=== PATIENT | female | born 1955 | race Caucasian/White ===

== ENCOUNTER 2017-04-22 14:17 | Observation (INO) ==
[2017-04-22] MEDS ORDERED: ONDANSETRON 4 MG/2 ML VIAL IV PRN (14:28)
[2017-04-22] MEDS: SODIUM CHLORIDE 0.9% 1,000 ML IV SCH (16:28)
[2017-04-22] MEDS ORDERED: LABETALOL 20 MG/4 ML SYRINGE IV PRN (17:03)
--- NOTE | 2017-04-22 17:03 | Hospitalist History & Physical ---
Assessment and Plan (1) Acute right-sided weakness Status: Acute Assessment and plan: Neurological workup was performed at [facility] prior to transfer. CT scan was essentially negative; labs were essentially benign. Although the patient reported profound right-sided weakness, her deficits are noted gross. She is able to move the right side extremities however there is a degree of weakness noted. We will order a stat MRI of the brain; echocardiogram, carotid Dopplers , lipid panel, and thyroid panel. We will consult neurology to evaluate. Current Visit: Yes (2) Hypertension Status: Acute Assessment and plan: We will monitor manage during the clinical encounter. Current Visit: Yes History of Present Illness Chief complaint: Right-sided weakness right-sided weakness History of present illness: This is a 61-year-old female that presented to [facility] as a direct admission from [facility] in [place], [place] for the evaluation of right-sided weakness. The patient has a medical history significant for hypertension, cerebrovascular accident, insulin-dependent diabetes mellitus, fibromyalgia and history of transfusion from a blood transfusion. Patient has a surgical history significant for cardiac catheterization and coronary artery bypass graft in 2016. The patient reported an onset of symptoms about 3 hours prior to presentation at [facility]. Patient reported that the initial symptoms started as a headache and gradually progressed to some right-sided weakness. She reported that the pain from the headache affected the right side of her head and face. The weakness was more profound her lower extremities versus other upper extremities. Pertinent positives include visual changes, lower extremity weakness; pertinent negative include nausea, vomiting, syncope, and dizziness. Patient reports episodes similar in nature in the past. Neurological workup was performed at [facility]. I have reviewed the transfer paperwork. Her labs were essentially unremarkable. CT scan was performed was essentially negative for any acute intracranial process. I was contacted by Dr. Valle at [facility]. We discussed her case in great detail. The patient was subsequently transferred to [facility] for further neurological workup. Home Medications Medication Instructions Recorded Confirmed Type Aspirin Chew Tab 81 mg PO DAILY 04/22/17 04/22/17 History Benztropine Tab [Cogentin Tab] 0.5 mg PO DAILY 04/22/17 04/22/17 History Diclofenac Sodium Tab [Voltaren] 50 mg PO BID 04/22/17 04/22/17 History Insulin Aspart [NovoLOG FlexPen] 20 units SUBCUT AC SUPPER 04/22/17 04/22/17 History Insulin Glargine [Lantus] 70 units SUBCUT BEDTIME 04/22/17 04/22/17 History Losartan Potassium 100 mg PO DAILY 04/22/17 04/22/17 History Metoprolol Succinate Xl [Toprol Xl] 100 mg PO DAILY 04/22/17 04/22/17 History Multivit,Calc,Mins/Iron/Folic 1 tablet PO DAILY 04/22/17 04/22/17 History [Women's Daily Formula Caplet] Potassium 99 mg PO DAILY 04/22/17 04/22/17 History Allergies Allergy/AdvReac Type Severity Reaction Status Date / Time codeine Allergy Severe Unknown/Unable Verified 04/22/17 16:23 to obtain hydroxyzine Allergy Severe Unknown/Unable Verified 04/22/17 16:23 to obtain Penicillins Allergy Severe Unknown/Unable Verified 04/22/17 16:23 to obtain acetaminophen [From Tavist] Allergy Unknown Unknown/Unable Verified 04/22/17 16: 23 to obtain atropine [From ] Allergy Unknown Unknown/Unable Verified 04/22/17 16:23 to obtain clemastine [From Tavist] Allergy Unknown Unknown/Unable Verified 04/22/17 16:23 to obtain dipyridamole Allergy Unknown Unknown/Unable Verified 04/22/17 16:23 [From Persantine] to obtain Hyoscyamine [From ] Allergy Unknown Unknown/Unable Verified 04/22/17 16: 23 to obtain metformin Allergy Unknown Unknown/Unable Verified 04/22/17 16:24 to obtain phenobarbital [From ] Allergy Unknown Unknown/Unable Verified 04/22/17 16:23 to obtain phenylbutazone Allergy Unknown Unknown/Unable Verified 04/22/17 16:23 [From Butazolidin] to obtain pseudoephedrine [From Tavist] Allergy Unknown Unknown/Unable Verified 04/22/17 16:23 to obtain scopolamine [From ] Allergy Unknown Unknown/Unable Verified 04/22/17 16: 23 to obtain Sulfa (Sulfonamide Allergy Unknown Unknown/Unable Verified 04/22/17 16:23 Antibiotics) to obtain sulfamethoxazole Allergy Unknown Unknown/Unable Verified 04/22/17 16:23 [From Bactrim] to obtain trimethoprim [From Bactrim] Allergy Unknown Unknown/Unable Verified 06/06/17 16: 23 to obtain Medical,Surgical,& Family Hx - Medical History Cardio: History of: CAD, Hypertension Neurology: History of: Cerebrovascular Accident Endocrine: History of: Diabetes Mellitus (IDDM) Rheumatology: History of;: Fibromyalgia Hematology: History of: Blood Transfusion Reaction - Surgical History Cardiac Surgeries: Sugical HX of: Cardiac Catheterization, Cardiac Surgery (2016 ) - Family History Family History: Reports;: Family Diabetes, Family Heart Disease, Family Hypertension - Social History Smoking Status: Never smoker Frequency of Alcohol Use: None Type of Drug Use: None 12 point system: reviewed and no additional remarkable complaints except as stated Exam - Constitutional Vitals: Period Temp Pulse Resp BP Sys/Melvin Pulse Ox Last 24 Hr 97.7 F 91 20 141/82 97 General appearance: normal weight, no acute distress - Head Head exam: Present: normal inspection, normocephalic - Eye Eye exam: Present: EOMI, conjunctival injection Pupils: Present: MIRIAM, normal accommodation - ENT ENT exam: Present: normal exam, normal external ear exam, normal oropharynx - Neck Neck exam: Present: normal inspection. Absent: lymphadenopathy, meningismus, thyromegaly - Respiratory Respiratory exam: Present: clear to auscultation bilaterally. Absent: rales, rhonchi, stridor, wheezes - Cardiovascular Cardiovascular exam: Present: regular rate and rhythm. Absent: carotid bruit, diastolic murmur, gallop, JVD, rubs, systolic murmur - GI/Abdominal GI/Abdominal exam: Present: normal bowel sounds, soft - Extremities Exam Extremities exam: Present: normal inspection, normal capillary refill, full ROM. Absent: edema - Back Exam Back exam: Present: normal inspection - Neurological Exam Neurological exam: Present: alert, other (Motor strength 4/5 on left arm; 3/5 on right arm; 4/5 on left leg; 3/5 on right knee) - Psychiatric Psychiatric exam: Present: flat affect - Skin Skin exam: Present: normal color, warm, dry Quality Measures - VTE Contraindication to Pharmacological VTE Prophylaxis: Clinical assessment deems Pt at low risk, no prophalaxis needed - Stroke Onset of Symptoms Date: 04/22/17 Symptom Onset Unknown: No
[2017-04-22] MEDS ORDERED: DEXTROSE 50% 25 GM/50 ML VIAL IV PRN (17:26)
[2017-04-22] MEDS ORDERED: GLUCAGON 1 MG VIAL IM PRN (17:26)
[2017-04-22 18:15] LABS: Cholesterol 272 MG/DL (50-200); HDL Cholesterol 70 MG/DL (40-60); Risk Ratio 3.89; Triglycerides 180 MG/DL (2-150); Troponin I Only < 0.015 NG/ML (0.00-0.045)
--- NOTE | 2017-04-22 18:59 | Magnetic Resonance Report ---
MRI of the brain without intravenous contrast. Indication: Right-sided weakness and paralysis. No prior studies. No previous CT. Sagittal T1, axial diffusion, axial T2, axial FLAIR, axial T1, axial gradient echo, coronal T2, axial ADC. The appearance of the craniovertebral junction is within normal limits. There is a partial empty sella present. There is suspected enlargement of the sella turcica. The posterior aspect of the sphenoid sinus is not adequately differentiated from the anterior aspect of the pituitary fossa. The pituitary fossa may measure as much as 2.1 cm in the AP dimension. There is generalized prominence of the ventricles and sulci consistent with atrophy of aging. No cortical infarcts are seen. No acute ischemic lesions are noted. Minimal if any abnormal signal is seen within the white matter. Within the anterior aspect of the left thalamus, there is a curvilinear low signal intensity on T1 and gradient echo images, and mixed low and increased signal intensity on T2 sequences. This is low signal intensity on T1 centrally. The venous sinuses are patent. Impression: 1. No evidence of acute ischemic infarct. 2. Small, 8 mm focus of signal abnormality in the anterior aspects of the left thalamus. This could represent a small area of previous hemorrhage with encephalomalacia and hemosiderin, or a vascular malformation such as a cavernous angioma. A focus of rim calcification may also be present. CT may be helpful in making a further determination. 3. There is a partial empty sella. There is lobular fluid signal intensity seen anteriorly at the sella turcica. This could be a part of the enlarged sella turcica, or pathology present within the sphenoid sinus. CT of the sinuses is recommended for further evaluation PROCEDURE INTERPRETED AT [facility] DEPARTMENT OF RADIOLOGY Final Report Signed by: Dr. Kasey Higgins
--- NOTE | 2017-04-22 20:57 | Ultrasound Report ---
Bilateral carotid Doppler. Indication: Right-sided weakness. Grayscale, color-flow, and spectral analysis was performed and interpreted. There is mixed plaque present at each carotid bulb. The right internal carotid artery peak systolic velocity is 94 cm/s, with an IC/CC ratio 1.1. The left internal carotid artery peak systolic velocity is 99 cm/s, with an IC/CC ratio of 1.2. There is antegrade flow within each vertebral artery. Impression: Using NASCET criteria, findings consistent with less than 50% stenosis bilaterally. PROCEDURE INTERPRETED AT [facility] DEPARTMENT OF RADIOLOGY Final Report Signed by: Dr. Kasey Higgins
[2017-04-22] MEDS: DICLOFENAC SODIUM 50 MG TABLET PO SCH (21:16)
[2017-04-22] MEDS: ACETAMINOPHEN 325 MG TABLET PO PRN (21:18)
[2017-04-22] MEDS: INSULIN REGULAR 100 UNIT/ML SUBCUT SCH (21:21)
[2017-04-23] MEDS: SODIUM CHLORIDE 0.9% 1,000 ML IV SCH ×2 (05:07→21:37)
[2017-04-23 06:58] LABS: Basophils % 0.4 % (0.0-0.8); Eosinophils # 0.2 10*3/uL (0.0-0.87); Eosinophils % 3.6 % (0.00-10.9); Hematocrit 40.2 VOL% (35.7-47.0); Hemoglobin 13.7 GM/DL (12.0-16.0); Immature Granulocytes Absolute 0.05 #; Lymphocytes # 1.8 10*3/uL (1.4-4.0); Mean Corpuscular HGB Conc 34.1 GM/DL (32-36); Mean Corpuscular Hemoglobin 27 PG (27-34); Mean Corpuscular Volume 78.8 FL (87-102); Mean Platelet Volume 11.1 FL (9.6-12.0); Monocytes # 0.5 10*3/uL (0.11-0.8); Monocytes % 9.7 % (1.7-12.7); Neutrophils # 2.5 10*3/uL (1.4-7.4); Neutrophils % 50.3 % (38.7-73.9); Platelet Count 135 T/CUMM (130-400); Red Cell Distribution Width 13.5 % (9.3-17.3)
[2017-04-23 07:41] LABS: Albumin 3.2 G/DL (3.4-5.0); Bilirubin,Total 0.4 MG/DL (0.2-1.0); Calcium 8.6 MG/DL (8.5-10.1); Free T4 (Free Thyroxine) 0.94 NG/DL (0.76-1.46); Osmolality,Calculated 288.8 MOS/KG (273-304); Potassium 5.1 MMOL/L (3.5-5.1); Risk Ratio 4.64; Thyroid Stimulating Hormone 1.84 uIU/ml (0.358-3.74); VLDL CHOLESTEROL 46.6 MG/DL
[2017-04-23] MEDS: INSULIN REGULAR 100 UNIT/ML SUBCUT SCH ×4 (09:55→21:38)
[2017-04-23] MEDS: LOSARTAN 50 MG TABLET PO SCH ×2 (09:56→14:10)
[2017-04-23] MEDS: PANTOPRAZOLE 40 MG TABLET PO SCH (09:56)
[2017-04-23] MEDS: POTASSIUM GLUCONATE 500 MG TABLET PO SCH ×2 (09:56→10:13)
[2017-04-23] MEDS: ASPIRIN CHEW 81 MG TABLET PO SCH (09:57)
[2017-04-23] MEDS: MULTIVITAMIN (CENTRUM) TABLET PO SCH (09:57)
[2017-04-23] MEDS: METOPROLOL SUCCINATE XL 100 MG TABLET PO SCH (09:57)
[2017-04-23] MEDS: DICLOFENAC SODIUM 50 MG TABLET PO SCH ×2 (09:57→21:38)
[2017-04-23] MEDS: BENZTROPINE 0.5 MG TABLET PO SCH (09:57)
--- NOTE | 2017-04-23 14:25 | Hospitalist Progress Note ---
Assessment and Plan (1) CVA, old, hemiparesis Status: Acute Assessment and plan: MRI shows nothing acute, cont reanna, dr. Lora evaluation pending. Exacerbating weakness for secondary gain Current Visit: Yes (2) Hypertension Status: Acute Assessment and plan: controlled Current Visit: Yes (3) CAD (coronary artery disease) Status: Acute Assessment and plan: s/p cabg in [place] 2010 Current Visit: Yes (4) Depression Status: Acute Assessment and plan: zoloft 25 mg po every day Current Visit: Yes Hospitalist: Subjective Interval history: Patient does not seem to very focused when answering questions. She will barely move her mouth which is not a symptom of stroke I also noted when I was testing her strength on the right side where she supposedly had weakness she had hesitation. Patient does have a history of strokes from the past. Mary is her niece [phone] is her contact number. We will await physical therapy and OT therapy notes and make a referral to [facility] Exam - Constitutional Vitals: Period Temp Pulse Resp BP Sys/Melvin Pulse Ox Last 24 Hr 96.6 F-97.8 F 82-91 18-20 108-141/70-85 91-98 Exam: Heart Rate-[RRR] Lungs-[CTAB] GI-[+bs soft, NT] Ext-[no edema] Neuro [Motor 4/5 o right], [alert and oriented times 3] psych [normal mood and affect] General [no acute distress] Results - Labs CBC & BMP: 04/23/17 06:06 04/23/17 06:06 Lab Results: I have reviewed the past 24 hour labs - Diagnostic Findings Procedure: MRI: report reviewed by me (MRI of the brain shows no acute ischemic infarcts but has an 8 mm left thalamic previous infarct), Ultrasound: report reviewed by me (Carotid ultrasound less than 50% stenosis) Quality Measures - VTE Contraindication to Pharmacological VTE Prophylaxis: Clinical assessment deems Pt at low risk, no prophalaxis needed - Stroke Onset of Symptoms Date: 04/22/17 Symptom Onset Unknown: No
--- NOTE | 2017-04-23 14:57 | Hospitalist Progress Note ---
Assessment and Plan (1) CVA, old, hemiparesis Status: Acute Assessment and plan: MRI shows nothing acute, cont reanna, dr. Lora evaluation pending. Exacerbating weakness for secondary gain Current Visit: Yes (2) Hypertension Status: Acute Assessment and plan: controlled Current Visit: Yes (3) CAD (coronary artery disease) Status: Acute Assessment and plan: s/p cabg in [place] 2010 Current Visit: Yes (4) Depression Status: Acute Assessment and plan: zoloft 25 mg po every day Current Visit: Yes Exam - Constitutional Vitals: Period Temp Pulse Resp BP Sys/Melvin Pulse Ox Last 24 Hr 96.6 F-97.8 F 82-91 18-20 108-141/70-85 91-98 Results - Labs CBC & BMP: 04/23/17 06:06 04/23/17 06:06 Lab Results: I have reviewed the past 24 hour labs Quality Measures - VTE Contraindication to Pharmacological VTE Prophylaxis: Clinical assessment deems Pt at low risk, no prophalaxis needed - Stroke Onset of Symptoms Date: 04/22/17 Symptom Onset Unknown: No
[2017-04-23] MEDS: SERTRALINE 25 MG TABLET PO SCH (15:28)
[2017-04-23] MEDS: ACETAMINOPHEN 325 MG TABLET PO PRN ×2 (15:28→23:16)
--- NOTE | 2017-04-23 15:29 | Neurology Consult Note ---
History of Present Illness History of present illness: This is a 61-year-old RH WF that presented to [facility] as a direct admission from [facility] in [place], [place] for the evaluation of right-sided weakness. The patient has a medical history significant for hypertension, cerebrovascular accident, insulin-dependent diabetes mellitus, fibromyalgia and history of transfusion from a blood transfusion. Patient has a surgical history significant for cardiac catheterization and coronary artery bypass graft in 2016. The patient reported an onset of symptoms about 3 hours prior to presentation at [place]. Patient reported that the initial symptoms started as a headache and gradually progressed to some right-sided weakness. She reported that the pain from the headache affected the right side of her head and face. The weakness was more profound her lower extremities versus other upper extremities. CT scan was performed was essentially negative for any acute intracranial process. MRI of the brain reveals no acute abnormalities but it did show some old strokes and small vessel disease Home Medications Medication Instructions Recorded Confirmed Type Aspirin Chew Tab 81 mg PO DAILY 04/22/17 04/22/17 History Benztropine Tab [Cogentin Tab] 0.5 mg PO DAILY 04/22/17 04/22/17 History Diclofenac Sodium Tab [Voltaren] 50 mg PO BID 04/22/17 04/22/17 History Insulin Aspart [NovoLOG FlexPen] 20 units SUBCUT AC SUPPER 04/22/17 04/22/17 History Insulin Glargine [Lantus] 70 units SUBCUT BEDTIME 04/22/17 04/22/17 History Losartan Potassium 100 mg PO DAILY 04/22/17 04/22/17 History Metoprolol Succinate Xl [Toprol Xl] 100 mg PO DAILY 04/22/17 04/22/17 History Multivit,Calc,Mins/Iron/Folic 1 tablet PO DAILY 04/22/17 04/22/17 History [Women's Daily Formula Caplet] Potassium 99 mg PO DAILY 04/22/17 04/22/17 History Allergies Allergy/AdvReac Type Severity Reaction Status Date / Time codeine Allergy Severe Unknown/Unable Verified 04/22/17 16:23 to obtain hydroxyzine Allergy Severe Unknown/Unable Verified 04/22/17 16:23 to obtain Penicillins Allergy Severe Unknown/Unable Verified 04/22/17 16:23 to obtain acetaminophen [From Tavist] Allergy Unknown Unknown/Unable Verified 04/22/17 16: 23 to obtain atropine [From ] Allergy Unknown Unknown/Unable Verified 04/22/17 16:23 to obtain clemastine [From Tavist] Allergy Unknown Unknown/Unable Verified 04/22/17 16:23 to obtain dipyridamole Allergy Unknown Unknown/Unable Verified 04/22/17 16:23 [From Persantine] to obtain Hyoscyamine [From ] Allergy Unknown Unknown/Unable Verified 04/22/17 16: 23 to obtain metformin Allergy Unknown Unknown/Unable Verified 04/22/17 16:24 to obtain phenobarbital [From ] Allergy Unknown Unknown/Unable Verified 04/22/17 16:23 to obtain phenylbutazone Allergy Unknown Unknown/Unable Verified 04/22/17 16:23 [From Butazolidin] to obtain pseudoephedrine [From Tavist] Allergy Unknown Unknown/Unable Verified 04/22/17 16:23 to obtain scopolamine [From ] Allergy Unknown Unknown/Unable Verified 04/22/17 16: 23 to obtain Sulfa (Sulfonamide Allergy Unknown Unknown/Unable Verified 04/22/17 16:23 Antibiotics) to obtain sulfamethoxazole Allergy Unknown Unknown/Unable Verified 04/22/17 16:23 [From Bactrim] to obtain trimethoprim [From Bactrim] Allergy Unknown Unknown/Unable Verified 04/22/17 16: 23 to obtain 12 point system: reviewed and no additional remarkable complaints except as stated Medical,Surgical,& Family Hx - Medical History Cardio: History of: CAD, Hypertension Neurology: History of: Cerebrovascular Accident Endocrine: History of: Diabetes Mellitus (IDDM) Rheumatology: History of;: Fibromyalgia Hematology: History of: Blood Transfusion Reaction - Surgical History Cardiac Surgeries: Sugical HX of: Cardiac Catheterization, Cardiac Surgery (2016 ) - Family History Family History: Reports;: Family Diabetes, Family Heart Disease, Family Hypertension - Social History Smoking Status: Never smoker Frequency of Alcohol Use: None Type of Drug Use: None Exam - Constitutional Vitals: Period Temp Pulse Resp BP Sys/Melvin Pulse Ox Last 24 Hr 96.6 F-97.8 F 82-91 18-20 108-141/70-85 91-98 Exam: GENERAL: Patient is in no acute distress. NECK: Neck is supple. There is no JVD. No carotid bruits present. No thyroid masses. CVS: First and second heart sounds are normal. There is no S3 present. Regular rate and rhythm. RESPIRATORY: Lungs are clear to auscultation without any rales or rhonchi. ABDOMEN: Soft and non-tender. Bowel sounds are present. There is no hepatosplenomegaly. EXT: There is no palpable edema. Peripheral pulses are present. Skin: No rashes Central Nervous system: General: Alert, awake and Oriented x 3 Speech: Fluent Comprehension: Intact and normal Facial expressions: Normal Cranial Nerves: CN1/Olfactory: Normal CN II/ Optic: Normal, Visual Lees unreliable CN III, and : MIRIAM & EOMI CN V: Normal & intact CN VII: face is symmetric CNVIII: Normal CN XI/X/XI/XII: Intact and Normal Motor: Bulk and Tone is normal. Strength in the right 4-5/5 Strength in the left 4-5/5 Sensory: Grossly intact for all the modalities of PP, LT and temp sense Reflexes: 1+ and symmetrical Cerebellar function: Normal finger to nose and heel to porras testing. Toes: Equivocal Gait: Not tested Results - Labs CBC & BMP: 04/23/17 06:06 04/23/17 06:06 Assessment and Plan (1) History of CVA (cerebrovascular accident) Status: Acute Assessment and plan: There is no evidence of acute stroke, TIAs, epilepsy or seizures. She is somewhat deconditioned and some functional element. Continue aspirin a day Consider outpatient PT and OT or home health therapy. Sign off please call. Current Visit: Yes
--- NOTE | 2017-04-23 16:52 | ECHO Report ---
Ana Wall Exam Date: 04/23/2017 10:06 Referring Physician: Technologist: Shazia Garcia Age: 61 Ht (in): 64 Wt (lb): 208 Gender: F Exam Location: [facility] Echo Indications: cellulitis, alzhreimers, acute renal failure, CHF, HTN, A FIB BP: 114 / 73 HR: 100 Rhythm: tachycardia Technical Quality: Fair IMPRESSIONS Mild concentric LVH. Normal LVEF in the 5% range. Normal right ventricular size and systolic function. Normal right atrial size. Normal left atrial size. Mild mitral valve sclerosis. Mild mitral valve regurgitation. Mild aortic valve sclerosis. Morphologically normal tricuspid valve. Morphologically normal pulmonic valve. No pericardial effusion. Normal size aortic root and proximal ascending aorta. MEASUREMENTS (Male / Female) Normal Values 2D ECHO LV Diastolic Diameter PLAX 2.5 cm 4.2 - 5.9 / 3.9 - 5.3 cm LV Systolic Diameter PLAX 1.1 cm LV Fractional Shortening PLAX 54.3 % IVS Diastolic Thickness 1.4 cm 0.6 - 1.0 / 0.6 - 0.9 cm LVPW Diastolic Thickness 1.5 cm 0.6 - 1.0 / 0.6 - 0.9 cm RV Internal Dim ED PLAX 2.6 cm Aortic Root Diameter 2.8 cm LA Systolic Diameter LX 3.7 cm 3.0 - 4.0 / 2.7 - 3.8 cm FINDINGS Left Ventricle Mild concentric LVH. Normal LVEF in the 5% range Right Ventricle Normal right ventricular size and systolic function. Right Atrium Normal right atrial size. Left Atrium Normal left atrial size. Mitral Valve Mild mitral valve sclerosis. Mild mitral valve regurgitation. Aortic Valve Mild aortic valve sclerosis. Tricuspid Valve Morphologically normal tricuspid valve. Pulmonic Valve Morphologically normal pulmonic valve. Pericardium No pericardial effusion. Aorta Normal size aortic root and proximal ascending aorta. Maynor Torrez MD (Electronically Signed) Final Date: 23 April 2017 16:50
--- NOTE | 2017-04-24 08:46 | Discharge Summary ---
<Fabi Merida - Last Filed: 04/24/17 08:25> Hospital Course - Hospital Course Hospital Course: Ms. Wall is a 61-year-old white female patient with a history of hypertension, CVA, CABG, insulin-dependent diabetes mellitus, fibromyalgia, and blood transfusions who presented to [facility] as a direct admission from [facility] in [facility] on 04/22 for further evaluation of right-sided weakness. The patient reported that she had a sudden onset of symptoms about 3 hours prior to presentation at [facility]. She stated that the pain started as a headache and gradually progressed to right-sided weakness at the pain from the headache to the right side of her head and her face. It was noted that the weakness was more profound in her lower extremities versus upper extremities. CT scan was performed was negative for any type of acute intracranial process. MRI of the brain shows no evidence of new stroke. Patient has an old stroke in the left thalamus. She also has evidence of an partial empty sella. Carotid ultrasound showed less than 50% stenosis bilateral. Echocardiogram showed a normal EF of 55%. No diastolic dysfunction. Dr. Lora has seen her and does not recommend any stroke rehab but does need rehab for deconditioning. Continue aspirin. Discharge home if not accepted to [place]. Follow up with [facility] and Dr. Lora Discharge Plan - Discharge Data Disposition: Home Health Service - Discharge Medications New Sertraline [Zoloft] 25 mg PO DAILY tablet Continue Losartan Potassium 100 mg PO DAILY Aspirin Chew Tab 81 mg PO DAILY Metoprolol Succinate Xl [Toprol Xl] 100 mg PO DAILY Insulin Glargine [Lantus] 50 units SUBCUT BEDTIME #0 Multivit,Calc,Mins/Iron/Folic [Women's Daily Formula Caplet] 1 tablet PO DAILY Diclofenac Sodium Tab [Voltaren] 50 mg PO BID Benztropine Tab [Cogentin Tab] 0.5 mg PO DAILY Discontinued Potassium 99 mg PO DAILY Insulin Aspart [NovoLOG FlexPen] 20 units SUBCUT AC SUPPER - Follow Up or Referral Follow Up: chery, [Other] - 2 Weeks Peña Lora MD [Physician] - 2 Weeks - Forms/Instructions Exam - Constitutional Vitals: Period Temp Pulse Resp BP Sys/Melvin Pulse Ox Last 24 Hr 97.3 F-98.1 F 64-82 18-20 116-159/56-84 91-98 Discharge Results Labs on day of discharge: Labs from last 24 hours 04/24/17 04/23/17 04/23/17 07:18 21:35 15:41 POC Glucose 253 H 301 H 377 H 04/23/17 12:18 POC Glucose 297 H DS: Provider Date of admission: 04/22/17 16:36 Primary care physician: Mercy Castellanos MD Attending physician on admission: Mercy Castellanos MD Consults: 04/22/17 14:28 Consult to Physician [CONS] Routine Comment: Consulting Provider: Peña Lora When should Consulting Provider be notified: Now Person Notified: office Date Notified: 04/22/17 Time Notified: 15:37 04/22/17 17:03 Consult to Case Mgmt/Social Srvs [CONS] Routine Reason for Case Mgmt/Social Srvs: Discharge Planning Consult to Occupational Therapy [CONS] Routine Reason for Occupational Therapy: Evaluate and Treat Consult Comment: Stroke Consult to Physical Therapy [CONS] Routine Reason for Physical Therapy: Evaluate and Treat Consult Comment: stroke 04/23/17 09:59 Consult to Case Mgmt/Social Srvs [CONS] Routine Reason for Case Mgmt/Social Srvs: Rehab Consult Comment: ruchi cox Discharging clinician: Fabi Merida NP <Cheryle Hicks - Last Filed: 04/24/17 11:42> Hospital Course - Time spent with patient Time with patient DS: Greater than 30 minutes (40 min) Diagnosis - Discharge Diagnosis (1) CVA, old, hemiparesis Status: Acute (2) Hypertension Status: Acute (3) CAD (coronary artery disease) Status: Acute (4) Depression Status: Acute Discharge Plan - Discharge Data Condition at Discharge: Stable Discharge Diet: heart healthy Activity: resume usual activities as tolerated Hygiene: no restrictions Weight Bearing at Discharge: full weight bearing Driving: not until seen by doctor Exam - Constitutional General appearance: normal weight, no acute distress - Respiratory Respiratory exam: Present: clear to auscultation bilaterally. Absent: rhonchi, wheezes - Cardiovascular Cardiovascular exam: Present: regular rate and rhythm. Absent: systolic murmur - GI/Abdominal GI/Abdominal exam: Present: normal bowel sounds, soft. Absent: tenderness - Neurological Exam Neurological exam: Present: motor sensory deficit (right sided weakness) - Psychiatric Psychiatric exam: Present: depressed, flat affect
[2017-04-24] MEDS: METOPROLOL SUCCINATE XL 100 MG TABLET PO SCH (08:53)
[2017-04-24] MEDS: MULTIVITAMIN (CENTRUM) TABLET PO SCH (08:53)
[2017-04-24] MEDS: POTASSIUM GLUCONATE 500 MG TABLET PO SCH (08:53)
[2017-04-24] MEDS: PANTOPRAZOLE 40 MG TABLET PO SCH (08:53)
[2017-04-24] MEDS: ASPIRIN CHEW 81 MG TABLET PO SCH (08:53)
[2017-04-24] MEDS: SERTRALINE 25 MG TABLET PO SCH (08:53)
[2017-04-24] MEDS: LOSARTAN 50 MG TABLET PO SCH (08:53)
[2017-04-24] MEDS: DICLOFENAC SODIUM 50 MG TABLET PO SCH (08:53)
[2017-04-24] MEDS: INSULIN REGULAR 100 UNIT/ML SUBCUT SCH ×3 (08:54→15:59)
[2017-04-24] MEDS: BENZTROPINE 0.5 MG TABLET PO SCH (08:54)
[2017-04-24] MEDS: SODIUM CHLORIDE 0.9% 1,000 ML IV SCH (08:55)
[2017-04-24] MEDS: ACETAMINOPHEN 325 MG TABLET PO PRN (15:30)
[2017-04-24 16:41] VITALS: BP 149/84
== END 2017-04-24 17:35 | disposition home health service (06) ==
LOC: N.5E 15:17 → INTOOBSV 16:36 → SUATTDRO 16:36
PROVIDERS: ADMIT Internal Medicine; ATTEND Internal Medicine